=== PATIENT | female | born 1955 | race Caucasian/White ===

== ENCOUNTER 2023-01-30 13:21 | Inpatient (IN) | payer MEDICARE, OTHER ==
[~2023-01-30] VITALS: Ht 152.4 cm; Wt 41.7 kg
[2023-01-30] MEDS ORDERED: LURA20TA PO (13:53)
[2023-01-30] MEDS ORDERED: CLON0.5T PO (13:53)
[2023-01-30 13:58] LABS: BASOPHILS % (AUTO) 0.3 % (0.0-2.0); EOSINOPHILS % (AUTO) 0.5 % (0.0-7.0); HEMATOCRIT 34.5 % (31.2-41.9); HEMOGLOBIN 11.8 g/dL (10.9-14.3); LYMPHOCYTES # (AUTO) 1.6 K/uL (0.8-4.8); LYMPHOCYTES % (AUTO) 33.9 % (20.5-51.5); MEAN CORPUSCULAR HEMOGLOBIN 31.8 uug (24.7-32.8); MEAN CORPUSCULAR HGB CONC 34 g/dL (32.3-35.6); MEAN CORPUSCULAR VOLUME 93.2 fL (75.5-95.3); MONOCYTES # (AUTO) 0.3 K/uL (0.1-1.30); MONOCYTES % (AUTO) 7.2 % (0.0-11.0); NEUTROPHILS # (AUTO) 2.7 K/uL (1.8-8.9); NEUTROPHILS % (AUTO) 58.1 % (38.5-71.5); PLATELET COUNT (AUTO) 205 K/uL (179-408); RED CELL DISTRIBUTION WIDTH 12.5 % (12.3-17.7); WHITE BLOOD COUNT (AUTO) 4.7 K/uL (3.8-11.8)
[2023-01-30 14:14] LABS: CALCIUM 9.1 mg/dL (8.5-10.1); CARBON DIOXIDE 29 mmol/L (21-32); CHLORIDE 100 mmol/L (98-107); CREATININE 0.6 mg/dL (0.6-1.3); GLUCOSE 90 mg/dL (74-106); POTASSIUM 3.8 mmol/L (3.5-5.1); SODIUM SERUM 137 mmol/L (136-145); UREA NITROGEN, BLOOD 10 mg/dL (7-18)
[2023-01-30 14:16] LABS: DIFFERENTIAL COMMENT 1
[2023-01-30 14:19] LABS: ALANINE AMINOTRANSFERASE 42 U/L (14-59); ALBUMIN 3.5 g/dL (3.4-5.0); ALKALINE PHOSPHATASE 87 U/L (50-136); ASPARTATE AMINOTRANSFERASE 29 U/L (15-37); BILIRUBIN,DIRECT 0.1 mg/dL (0.0-0.2); BILIRUBIN,TOTAL 0.4 mg/dL (0.2-1.0); TOTAL PROTEIN, SERUM 6.6 g/dL (6.4-8.2)
[2023-01-30 14:23] LABS: ETHANOL < 3 MG/DL (0-10)
[2023-01-30 14:24] LABS: ACETAMINOPHEN < 2.0 ug/mL (10-30)
[2023-01-30 15:16] LABS: *BILIRUBIN,URIN NEGATIVE (NEGATIVE); *CLARITY,URINE CLEAR (CLEAR); *COLOR,URINE YELLOW (YELLOW); *KETONES,URINE NEGATIVE (NEGATIVE); *PROTEIN,URINE NEGATIVE (NEGATIVE); *UROBILINOGEN,URINE 0.2 E.U./dl (NORMAL); LEUKOCYTE ESTERASE ,URINE NEGATIVE (NEGATIVE); NITRITE, URINE NEGATIVE (NEGATIVE); UGLUCOSE NEGATIVE (NEGATIVE)
[2023-01-30 15:31] LABS: *BLOOD, URINE NEGATIVE (NEGATIVE)
[2023-01-30 15:37] LABS: *AMPHETAMINE, URINE NEGATIVE (NEGATIVE); *BARBITURATE, URINE NEGATIVE (NEGATIVE); *BENZODIAZEPINE, URINE NEGATIVE (NEGATIVE); *CANNABINOID, URINE NEGATIVE (NEGATIVE); *COCCAINE, URINE NEGATIVE (NEGATIVE); *OPIATE, URINE NEGATIVE (NEGATIVE); *PHENCYCLIDINE SCREEN,URINE NEGATIVE (NEGATIVE); FENTANYL, URINE NEGATIVE (NEGATIVE)
[2023-01-30] MEDS ORDERED: HYDR-500 GT (15:56)
[2023-01-30] MEDS ORDERED: MIRT-94 PO (15:56)
[2023-01-30] MEDS ORDERED: BLOOD SUGAR DIAGNOSTIC 1 EACH STRIP VI ONE (16:45)
[2023-01-30] MEDS ORDERED: MAG HYDROX/AL HYDROX/SIMETH 30 ML LIQUID UDC PO PRN (16:45)
[2023-01-30] MEDS ORDERED: MAGNESIUM HYDROXIDE 30 ML LIQUID UDC PO PRN (16:45)
[2023-01-30] MEDS ORDERED: ACETAMINOPHEN 325 MG TABLET PO PRN (16:45)
[2023-01-30 18:34] VITALS: BP 115/74; TEMP 97.4; O2SAT 98
[2023-01-30] MEDS: CLONAZEPAM 0.5 MG TABLET PO PRN (20:41)
[2023-01-31] MEDS: TEMAZEPAM 7.5 MG CAPSULE PO PRN (01:34)
[2023-01-31 07:43] LABS: BASOPHILS % (AUTO) 0.6 % (0.0-2.0); EOSINOPHILS # (AUTO) 0.1 K/uL (0.0-0.7); EOSINOPHILS % (AUTO) 1.7 % (0.0-7.0); HEMATOCRIT 36.9 % (31.2-41.9); HEMOGLOBIN 12.7 g/dL (10.9-14.3); LYMPHOCYTES # (AUTO) 1.6 K/uL (0.8-4.8); LYMPHOCYTES % (AUTO) 46.7 % (20.5-51.5); MEAN CORPUSCULAR HEMOGLOBIN 31.8 uug (24.7-32.8); MEAN CORPUSCULAR HGB CONC 35 g/dL (32.3-35.6); MEAN CORPUSCULAR VOLUME 92.3 fL (75.5-95.3); MONOCYTES # (AUTO) 0.3 K/uL (0.1-1.30); MONOCYTES % (AUTO) 9.2 % (0.0-11.0); NEUTROPHILS # (AUTO) 1.4 K/uL (1.8-8.9); NEUTROPHILS % (AUTO) 41.8 % (38.5-71.5); PLATELET COUNT (AUTO) 218 K/uL (179-408); RED CELL DISTRIBUTION WIDTH 12.7 % (12.3-17.7); WHITE BLOOD COUNT (AUTO) 3.4 K/uL (3.8-11.8)
[2023-01-31 07:49] LABS: DIFFERENTIAL COMMENT 1
[2023-01-31 08:07] VITALS: BP 100/61; TEMP 98; O2SAT 96
[2023-01-31 08:09] LABS: ALBUMIN 3.7 g/dL (3.4-5.0); BILIRUBIN,TOTAL 0.4 mg/dL (0.2-1.0); CALCIUM 8.4 mg/dL (8.5-10.1); CREATININE 0.6 mg/dL (0.6-1.3); POTASSIUM 4.4 mmol/L (3.5-5.1); TOTAL PROTEIN, SERUM 7.1 g/dL (6.4-8.2)
[2023-01-31 15:31] VITALS: BP 91/49; TEMP 98; O2SAT 98
[2023-01-31] MEDS: CLONAZEPAM 0.5 MG TABLET PO PRN (19:01)
[2023-01-31 19:52] VITALS: BP 95/56; TEMP 98.4; O2SAT 98
[2023-01-31] MEDS: MIRTAZAPINE 15 MG TABLET PO SCH (20:32)
[2023-01-31] MEDS ORDERED: OLANZAPINE 5 MG TABLET PO SCH (21:00)
[2023-02-01 08:00] VITALS: BP 102/60; TEMP 97.6; O2SAT 97
[2023-02-01] MEDS: CLONAZEPAM 0.5 MG TABLET PO PRN ×2 (09:16→15:58)
[2023-02-01 16:13] VITALS: BP 96/77; TEMP 98.2; O2SAT 98
[2023-02-01 20:00] VITALS: BP 107/63; TEMP 98; O2SAT 99
[2023-02-01] MEDS: OLANZAPINE 5 MG TABLET PO SCH (20:26)
[2023-02-01] MEDS: MIRTAZAPINE 15 MG TABLET PO SCH (20:27)
[2023-02-01] MEDS: TEMAZEPAM 7.5 MG CAPSULE PO PRN (21:28)
[2023-02-02 07:52] VITALS: BP 107/62; TEMP 98.4; O2SAT 100
[2023-02-02] MEDS: CLONAZEPAM 0.5 MG TABLET PO PRN (11:50)
[2023-02-02 16:18] VITALS: BP 126/69; TEMP 98.1; O2SAT 99
[2023-02-02] MEDS: OLANZAPINE 5 MG TABLET PO SCH (20:33)
[2023-02-02] MEDS: MIRTAZAPINE 15 MG TABLET PO SCH (20:33)
[2023-02-02 20:34] VITALS: BP 97/61; TEMP 98.2; O2SAT 99
[2023-02-02] MEDS: TEMAZEPAM 7.5 MG CAPSULE PO PRN (23:14)
[2023-02-03] MEDS: TEMAZEPAM 7.5 MG CAPSULE PO PRN (01:00)
[2023-02-03 08:04] VITALS: BP 105/68; TEMP 98; O2SAT 100
[2023-02-03] MEDS: CLONAZEPAM 0.5 MG TABLET PO PRN (09:59)
[2023-02-03 16:34] VITALS: BP 121/86; TEMP 98.1; O2SAT 100
[2023-02-03] MEDS: MIRTAZAPINE 15 MG TABLET PO SCH (20:19)
[2023-02-03] MEDS: OLANZAPINE 5 MG TABLET PO SCH (20:19)
[2023-02-03 20:35] VITALS: BP 114/63; TEMP 98.2; O2SAT 99
[2023-02-04 07:56] VITALS: BP 113/71; TEMP 98.4; O2SAT 100
[2023-02-04] MEDS: CLONAZEPAM 0.5 MG TABLET PO PRN (08:41)
[2023-02-04 16:27] VITALS: BP 91/55; TEMP 98; O2SAT 100
[2023-02-04 20:00] VITALS: BP 124/64; TEMP 98.7; O2SAT 98
[2023-02-04] MEDS: MIRTAZAPINE 15 MG TABLET PO SCH (20:38)
[2023-02-04] MEDS: OLANZAPINE 5 MG TABLET PO SCH (20:39)
[2023-02-05] MEDS: CLONAZEPAM 0.5 MG TABLET PO PRN ×3 (07:03→22:13)
[2023-02-05 07:51] VITALS: BP 110/67; TEMP 98; O2SAT 99
[2023-02-05 15:13] VITALS: BP 135/75; TEMP 98; O2SAT 99
[2023-02-05 20:17] VITALS: BP 114/64; TEMP 98.2; O2SAT 99
[2023-02-05] MEDS: MIRTAZAPINE 15 MG TABLET PO SCH (20:46)
[2023-02-05] MEDS: OLANZAPINE 5 MG TABLET PO SCH (20:58)
[2023-02-06 07:52] LABS: BASOPHILS % (AUTO) 0.3 % (0.0-2.0); HEMATOCRIT 38.5 % (31.2-41.9); HEMOGLOBIN 13.2 g/dL (10.9-14.3); LYMPHOCYTES # (AUTO) 1.4 K/uL (0.8-4.8); LYMPHOCYTES % (AUTO) 38.1 % (20.5-51.5); MEAN CORPUSCULAR HEMOGLOBIN 31.8 uug (24.7-32.8); MEAN CORPUSCULAR HGB CONC 34 g/dL (32.3-35.6); MEAN CORPUSCULAR VOLUME 92.9 fL (75.5-95.3); MONOCYTES # (AUTO) 0.4 K/uL (0.1-1.30); MONOCYTES % (AUTO) 9.5 % (0.0-11.0); NEUTROPHILS # (AUTO) 1.9 K/uL (1.8-8.9); NEUTROPHILS % (AUTO) 51.1 % (38.5-71.5); PLATELET COUNT (AUTO) 230 K/uL (179-408); RED BLOOD CELL COUNT(AUTO) 4.14 MIL/uL (3.63-4.92); RED CELL DISTRIBUTION WIDTH 12.9 % (12.3-17.7); WHITE BLOOD COUNT (AUTO) 3.7 K/uL (3.8-11.8)
[2023-02-06 07:55] LABS: DIFFERENTIAL COMMENT 1
[2023-02-06 08:10] LABS: ALBUMIN 3.7 g/dL (3.4-5.0); BILIRUBIN,TOTAL 0.7 mg/dL (0.2-1.0); CALCIUM 9.4 mg/dL (8.5-10.1); CREATININE 0.5 mg/dL (0.6-1.3); MAGNESIUM 2.2 mg/dL (1.8-2.4); PHOSPHOROUS 3.9 mg/dL (2.5-4.9); POTASSIUM 4.1 mmol/L (3.5-5.1)
[2023-02-06 08:11] VITALS: BP 91/51; TEMP 98; O2SAT 98
[2023-02-06] MEDS: MIRTAZAPINE 15 MG TABLET PO SCH ×2 (11:21→20:09)
[2023-02-06] MEDS: CLONAZEPAM 0.5 MG TABLET PO PRN (15:43)
[2023-02-06 16:00] VITALS: BP 114/63; TEMP 97.3; O2SAT 97
[2023-02-06 20:00] VITALS: BP 106/59; TEMP 98; O2SAT 100
[2023-02-06] MEDS: OLANZAPINE 5 MG TABLET PO SCH (20:09)
[2023-02-07] MEDS: CLONAZEPAM 0.5 MG TABLET PO PRN ×2 (00:11→17:31)
[2023-02-07 07:30] VITALS: BP_SYST 110; BP_SYST 127; BP_DIAS 59; BP_DIAS 65; TEMP 97.9; TEMP 98; O2SAT 97; O2SAT 98
[2023-02-07] MEDS: MIRTAZAPINE 15 MG TABLET PO SCH ×2 (09:09→20:19)
[2023-02-07 09:20] LABS: *BILIRUBIN,URIN NEGATIVE (NEGATIVE); *CLARITY,URINE CLEAR (CLEAR); *COLOR,URINE YELLOW (YELLOW); *KETONES,URINE NEGATIVE (NEGATIVE); *PROTEIN,URINE NEGATIVE (NEGATIVE); *UROBILINOGEN,URINE 0.2 E.U./dl (NORMAL); LEUKOCYTE ESTERASE ,URINE TRACE (NEGATIVE); NITRITE, URINE NEGATIVE (NEGATIVE); UGLUCOSE NEGATIVE (NEGATIVE)
[2023-02-07 09:36] LABS: *BLOOD, URINE TRACE (NEGATIVE)
[2023-02-07 10:02] LABS: BACTERIA,URINE FEW /HPF (NONE SEEN); RBC,URINE 0-3 /HPF (0-3); SQUAMOUS EPITHELIAL CELL,UR FEW /HPF (NONE SEEN); WBC,URINE 0-3 /HPF (0-3)
[2023-02-07 15:55] VITALS: BP_SYST 146; BP_SYST 91; BP_DIAS 50; BP_DIAS 63; TEMP 97.6; O2SAT 100; O2SAT 98
[2023-02-07 20:00] VITALS: BP 106/58; TEMP 98; O2SAT 100
[2023-02-07] MEDS: OLANZAPINE 5 MG TABLET PO SCH (20:26)
[2023-02-08 07:30] VITALS: BP 99/63; TEMP 97.6; O2SAT 99
[2023-02-08] MEDS: MIRTAZAPINE 15 MG TABLET PO SCH ×2 (08:30→20:11)
[2023-02-08] MEDS: CLONAZEPAM 0.5 MG TABLET PO PRN (11:37)
[2023-02-08 16:00] VITALS: BP 101/65; TEMP 97.8; O2SAT 100
[2023-02-08 20:00] VITALS: BP 109/59; TEMP 97.1; O2SAT 100
[2023-02-08] MEDS: OLANZAPINE 5 MG TABLET PO SCH (20:14)
[2023-02-09] MEDS: CLONAZEPAM 0.5 MG TABLET PO PRN (07:45)
[2023-02-09] MEDS: MIRTAZAPINE 15 MG TABLET PO SCH ×2 (08:00→20:42)
[2023-02-09 08:14] VITALS: BP 123/78; TEMP 97.7; O2SAT 100
[2023-02-09 16:08] VITALS: BP 91/50; TEMP 97.6; O2SAT 99
[2023-02-09 20:00] VITALS: BP 90/48; TEMP 98.3; O2SAT 99
[2023-02-09] MEDS: OLANZAPINE 5 MG TABLET PO SCH ×2 (20:42→20:54)
[2023-02-10 08:17] VITALS: BP 92/56; TEMP 98.1; O2SAT 98
[2023-02-10] MEDS: MIRTAZAPINE 15 MG TABLET PO SCH ×2 (08:27→20:25)
[2023-02-10] MEDS: CLONAZEPAM 0.5 MG TABLET PO PRN ×2 (11:21→21:35)
[2023-02-10 16:32] VITALS: BP 102/55; TEMP 98; O2SAT 100
[2023-02-10 19:59] VITALS: BP 106/54; TEMP 98.1; O2SAT 99
[2023-02-10] MEDS: OLANZAPINE 5 MG TABLET PO SCH (20:25)
[2023-02-11 07:56] VITALS: BP 106/71; TEMP 98.2; O2SAT 99
[2023-02-11] MEDS: CLONAZEPAM 0.5 MG TABLET PO PRN ×2 (08:46→22:02)
[2023-02-11] MEDS: MIRTAZAPINE 15 MG TABLET PO SCH ×2 (08:47→20:44)
[2023-02-11 16:14] VITALS: BP 102/60; TEMP 98; O2SAT 100
[2023-02-11 19:58] VITALS: BP 99/59; TEMP 98.1; O2SAT 99
[2023-02-11] MEDS: OLANZAPINE 5 MG TABLET PO SCH (20:47)
[2023-02-12 07:30] VITALS: BP 107/61; TEMP 98.2; O2SAT 100
[2023-02-12] MEDS: MIRTAZAPINE 15 MG TABLET PO SCH (08:21)
== END 2023-02-12 11:00 | DRG 885 ==
LOC: ER 13:21 → GPS 15:34
PROVIDERS: ADMIT Psychiatry & Neurology Psychiatry; ATTEND Internal Medicine
DX: F25.9 Schizoaffective disorder, unspecified (principal); Z68.1 Body mass index [BMI] 19.9 or less, adult; E46 Unspecified protein-calorie malnutrition; Z73.6 Limitation of activities due to disability; F41.9 Anxiety disorder, unspecified; R62.7 Adult failure to thrive; Z85.3 Personal history of malignant neoplasm of breast; Z87.891 Personal history of nicotine dependence; Z82.0 Family history of epilepsy and other diseases of the nervous system
CPT/HCPCS: 36415; 83735; 84100; 85025; 93005; G0480